=== PATIENT | female | born 2000 | race Caucasian/White ===

== ENCOUNTER 2021-10-02 17:14 | Emergency (ER) | payer SELFPAY ==
[~2021-10-02] VITALS: Ht 172.7 cm; Wt 57.7 kg
--- NOTE | 2021-10-02 18:13 | PHYS DOC ---
Past Medical History Past Medical History: No Pertinent History (MICHELE MUNIZ APRN) Past Surgical History: No Surgical History (MICHELE MUNIZ APRN) Smoking Status: Never Smoker Alcohol Use: None Drug Use: None (MICHELE MUNIZ APRN) General Adult EDM: Chief Complaint: PAIN ON URINATION HPI: HPI: Patient is a 21 year old female who presents with vaginal itching and white discharge for the last month, intermittent urinary burning with urination. She states she went to her doctor who gave her Diflucan but did not seem to help. History is a Lap-Band, yeast infection, tonsillectomy, obesity. She states that she was sexually active about a month ago when all this started. Denies abdominal pain, nausea, vomiting, diarrhea, fever, back pain, chest pain, shortness of air, numbness or tingling, focal weakness. (IAN CARRANZA APRN) HPI: Patient is a 21-year-old female that presents today with painful urination. Patient states that over the last 2 days she has had increased pain and frequency in urination. Patient denies chest pain, abdominal pain, back pain, fever or chills, nausea vomiting or diarrhea. Patient denies vaginal bleeding vaginal discharge as well. (MICHELE MUNIZ APRN) Review of Systems: Review of Systems: Constitutional: Denies fever or chills. [] Eyes: Denies change in visual acuity. [] HENT: Denies nasal congestion or sore throat. [] Respiratory: Denies cough or shortness of breath. [] Cardiovascular: Denies chest pain or edema. [] GI: Denies abdominal pain, nausea, vomiting, bloody stools or diarrhea. [] : Denies dysuria. +Vaginal discharge, +vaginal itching[] Musculoskeletal: Denies back pain or joint pain. [] Integument: Denies rash. [] Neurologic: Denies headache, focal weakness or sensory changes. [] Endocrine: Denies polyuria or polydipsia. [] Lymphatic: Denies swollen glands. [] Psychiatric: Denies depression or anxiety. [] (IAN CARRANZA APRN) Review of Systems: See HPI for review of systems (MICHELE MUNIZ APRN) Heart Score: C/O Chest Pain: No (BAFUS,IAN M INCINERATOR OPERATOR) C/O Chest Pain: No (MICHELE MUNIZ INCINERATOR OPERATOR) Physical Exam: PE: Constitutional: Well developed, well nourished, no acute distress, non-toxic appearance. [] HENT: Normocephalic, atraumatic, bilateral external ears normal, oropharynx moist, no oral exudates, nose normal. [] Eyes: PERRLA, EOMI, conjunctiva normal, no discharge. [] Neck: Normal range of motion, no tenderness, supple, no stridor. [] Cardiovascular:Heart rate regular rhythm, no murmur [] Lungs & Thorax: Bilateral breath sounds clear to auscultation [] Abdomen: Bowel sounds normal, soft, no tenderness, no masses, no pulsatile masses. [] Skin: Warm, dry, no erythema, no rash. [] Back: No tenderness, no CVA tenderness. [] Extremities: No tenderness, no cyanosis, no clubbing, ROM intact, no edema. [] Neurologic: Alert and oriented X 3, normal motor function, normal sensory function, no focal deficits noted. [] Psychologic: Affect normal, judgement normal, mood normal. [] Normal Physical Exam (BAFUS,IAN M INCINERATOR OPERATOR) PE: Constitutional: Well developed, well nourished, no acute distress, non-toxic appearance. [] HENT: Normocephalic, atraumatic, bilateral external ears normal, oropharynx moist, no oral exudates, nose normal. [] Eyes: PERRLA, EOMI, conjunctiva normal, no discharge. [] Neck: Normal range of motion, no tenderness, supple, no stridor. [] Cardiovascular:Heart rate regular rhythm, no murmur [] Lungs & Thorax: Bilateral breath sounds clear to auscultation [] Abdomen: Bowel sounds normal, soft, no tenderness, no masses, no pulsatile masses. [] Skin: Warm, dry, no erythema, no rash. [] Back: No tenderness, no CVA tenderness. [] Extremities: No tenderness, no cyanosis, no clubbing, ROM intact, no edema. [] Neurologic: Alert and oriented X 3, normal motor function, normal sensory func tion, no focal deficits noted. [] Psychologic: Affect normal, judgement normal, mood normal. [] (MICHELE MUNIZ APRN) Current Patient Data: Vital Signs: Vital Signs Date Time Temp Pulse Resp B/P (MAP) Pulse Ox O2 Delivery O2 Flow Rate FiO2 10/02/21 18:27 97.2 66 18 108/68 (81) 98 Room Air 97.2 (MICHELE MUNIZ APRN) EKG: EKG: [] (INA CARRANZA APRN) Radiology/Procedures: Radiology/Procedures: [] (IAN CARRANZA APRN) Dragon Disclaimer: Dragon Disclaimer: This electronic medical record was generated, in whole or in part, using a voice recognition dictation system. (IAN CARRANZA APRN) IAN CARRANZA APRN October 02, 2021 18:13 MICHELE MUNIZ APRN October 02, 2021 18:28
[2021-10-02 18:59] LABS: BACTERIA,URINE FEW /HPF (0-FEW); RBC,URINE >40 /HPF (0-2)
[2021-10-02] MEDS ORDERED: PHEN100T82 PO (19:10)
[2021-10-02] MEDS ORDERED: NITR100C62 PO (19:10)
--- NOTE | 2021-10-02 19:10 | PHYS DOC ---
Past Medical History Past Medical History: No Pertinent History Past Surgical History: No Surgical History Smoking Status: Never Smoker Alcohol Use: None Drug Use: None General Adult EDM: Chief Complaint: PAIN ON URINATION HPI: HPI: Patient is a 21-year-old female that presents today with painful urination. P atient states that over the last 2 days she has had increased pain and frequency in urination. Patient denies chest pain, abdominal pain, back pain, fever or chills, nausea vomiting or diarrhea. Patient denies vaginal bleeding vaginal discharge as well. Review of Systems: Review of Systems: Constitutional: Denies fever or chills. [] Eyes: Denies change in visual acuity. [] HENT: Denies nasal congestion or sore throat. [] Respiratory: Denies cough or shortness of breath. [] Cardiovascular: Denies chest pain or edema. [] GI: Denies abdominal pain, nausea, vomiting, bloody stools or diarrhea. [] : dysuria. [] Musculoskeletal: Denies back pain or joint pain. [] Integument: Denies rash. [] Neurologic: Denies headache, focal weakness or sensory changes. [] Endocrine: Denies polyuria or polydipsia. [] Lymphatic: Denies swollen glands. [] Psychiatric: Denies depression or anxiety. [] Heart Score: C/O Chest Pain: No Risk Factors: Risk Factors: DM, Current or recent (<one month) smoker, HTN, HLP, family history of CAD, obesity. Risk Scores: Score 0 - 3: 2.5% MACE over next 6 weeks - Discharge Home Score 4 - 6: 20.3% MACE over next 6 weeks - Admit for Clinical Observation Score 7 - 10: 72.7% MACE over next 6 weeks - Early Invasive Strategies Physical Exam: PE: Constitutional: Well developed, well nourished, no acute distress, non-toxic appearance. [] HENT: Normocephalic, atraumatic, bilateral external ears normal, oropharynx moist, no oral exudates, nose normal. [] Eyes: PERRLA, EOMI, conjunctiva normal, no discharge. [] Neck: Normal range of motion, no tenderness, supple, no stridor. [] Cardiovascular:Heart rate regular rhythm, no murmur [] Lungs & Thorax: Bilateral breath sounds clear to auscultation [] Abdomen: Bowel sounds normal, soft, no tenderness, no masses, no pulsatile masses. [] Skin: Warm, dry, no erythema, no rash. [] Back: No tenderness, no CVA tenderness. [] Extremities: No tenderness, no cyanosis, no clubbing, ROM intact, no edema. [] Neurologic: Alert and oriented X 3, normal motor function, normal sensory function, no focal deficits noted. [] Psychologic: Affect normal, judgement normal, mood normal. [] Current Patient Data: Labs: Laboratory Tests Test 10/02/21 18:14 10/02/21 18:27 Urine Collection Type Unknown Urine Color (Auto) Yellow Urine Turbidity Hazy Urine pH (Auto) 5.5 (<5.0-8.0) Urine Specific [place] 1.033 (1.000-1.030) Urine Protein (Auto) 70 mg/dL (Negative) Urine Glucose (Auto)(UA) Negative mg/dL (Negative) Urine Ketones (Auto) 20 mg/dL (Negative) Urine Blood (Auto) Large (Negative) Urine Nitrite Negative (Negative) Urine Bilirubin (Auto) Negative (Negative) Urine Urobilinogen (Auto) Normal mg/dL (Normal) Urine Leukocyte Esterase (Auto) Small (Negative) Urine RBC >40 /HPF (0-2) Urine WBC 11-20 /HPF (0-4) Urine Squamous Epithelial Cells Many /LPF Urine Bacteria Few /HPF (0-FEW) Urine Mucus Marked /LPF POC Urine HCG, Qualitative Hcg negative (Negative) Vital Signs: Vital Signs Date Time Temp Pulse Resp B/P (MAP) Pulse Ox O2 Delivery O2 Flow Rate FiO2 10/02/21 18:27 97.2 66 18 108/68 (81) 98 Room Air 97.2 EKG: EKG: [] Radiology/Procedures: Radiology/Procedures: [] Course & Med Decision Making: Course & Med Decision Making Pertinent Labs and Imaging studies reviewed. (See chart for details) 1900 I reviewed radiological results with patient did inform her that she does have a urinary tract infection, patient is nontoxic in appearance and afebrile at this time we will treat on an outpatient basis with Macrobid and Pyridium. Patient will be instructed to follow-up with her primary care physician or one of the listed clinics below for further evaluation and management of her condition. Patient verbalizes understanding of this and agreeable with plan of care. Lizandro Disclaimer: Lizandro Disclaimer: This electronic medical record was generated, in whole or in part, using a voice recognition dictation system. Departure Departure Impression: Primary Impression: Urinary tract infection Qualified Codes: N30.01 - Acute cystitis with hematuria Disposition: HOME / SELF CARE / HOMELESS Condition: STABLE Referrals: NO PCP (PCP) Patient Instructions: Urinary Tract Infection Additional Instructions: Macrobid 100 mg take 1 tablet twice daily for 7 full days for urinary tract infection Pyridium 100 mg take 1 tablet 3 times daily for 2 days to help with UTI symptoms. FYI this will cause your urine to turn bright orange Tylenol and/or ibuprofen as needed for fever and pain Follow-up with your primary care physician or one of the listed clinics below for further evaluation and management of her UTI Return here to the emergency department should you have increased pain in your abdomen, nausea vomiting that does not allow you to take your antibiotics as prescribed, or development of a fever while on the antibiotics. Scripts Nitrofurantoin Monohyd/M-Cryst (MACROBID 100 MG CAPSULE) 100 Mg Capsule 1 CAP PO BID for 7 Days, #14 CAP 0 Refills Prov: MICHELE MUNIZ ENVIRONMENTAL MANAGEMENT SPECIALIST 10/02/21 Phenazopyridine Hcl (PYRIDIUM) 100 Mg Tablet 1 TAB PO TID for urinary discomfort for 2 Days, #6 TAB 0 Refills Prov: MICHELE MUNIZ ENVIRONMENTAL MANAGEMENT SPECIALIST 10/02/21 MICHELE MUNIZ APRN October 02, 2021 19:10
[2021-10-02 19:16] VITALS: BP 118/70
== END 2021-10-02 19:17 | disposition home or self-care (01) ==
LOC: ER 17:14
DX: N30.01 Acute cystitis with hematuria (principal)
CPT/HCPCS: 81001; 81025; 87086; 99283